=== PATIENT | male | born 1955 | race Caucasian/White ===

== ENCOUNTER 2019-06-30 08:50 | Outpatient (REF) | payer OTHER, SELFPAY ==
[2019-06-30 21:14] LABS: Anion Gap 6.1 mmol/L (3-11); BUN 18 mg/dL (7-18); CO2 29.9 mmol/L (21.0-32.0); CREATININE 0.95 mg/dL (0.70-1.30); Calcium 9.3 mg/dL (8.5-10.1); Chloride 103 mmol/L (98-107); Glucose 128 mg/dL (74-106); Potassium 4.7 mmol/L (3.5-5.1); Sodium 139 mmol/L (136-145)
[2019-06-30 21:24] LABS: Hemoglobin A1C 8.6 % (3.8-5.6)
== END 2019-06-30 09:10 ==
LOC: NCHCN 08:50
PROVIDERS: Visit Provider Internal Medicine
DX: E11.649 Type 2 diabetes mellitus with hypoglycemia without coma (principal)
CPT/HCPCS: 80048; 82043; 82570; 83036

== ENCOUNTER 2021-10-21 14:49 | Outpatient (REF) | payer MEDICARE, SELFPAY ==
[2021-10-21 21:05] LABS: ALT 38 U/L (16-63); AST 29 U/L (15-37); Albumin 3.9 g/dL (3.4-5.0); Alkaline Phosphatase 74 U/L (46-116); Bilirubin, Direct 0.3 mg/dL (0.0-0.2); Bilirubin, Total 0.9 mg/dL (0.2-1.0); Total Protein 7.7 g/dL (6.4-8.2)
== END 2021-10-21 14:50 | disposition home or self-care (01) ==
LOC: NCHCN 14:49
PROVIDERS: Visit Provider Nurse Practitioner Family
DX: R74.8 Abnormal levels of other serum enzymes (principal)
CPT/HCPCS: 80076

== ENCOUNTER 2021-11-07 18:22 | Outpatient (REF) | payer MEDICARE, SELFPAY ==
[2021-11-07 21:39] LABS: Anion Gap 8.6 mmol/L (3-11); BUN 33 mg/dL (7-18); CO2 26.4 mmol/L (21.0-32.0); CREATININE 1.3 mg/dL (0.70-1.30); Calcium 8.7 mg/dL (8.5-10.1); Chloride 96 mmol/L (98-107); Estimated GFR 55.06 (mL/min/1.73m2); Glucose 213 mg/dL (74-106); Potassium 4.3 mmol/L (3.5-5.1); Sodium 131 mmol/L (136-145)
[2021-11-09 13:00] LABS: Hepatitis Be Antigen Negative (Negative)
== END 2021-11-07 18:23 | disposition home or self-care (01) ==
LOC: NCHCN 18:22
PROVIDERS: Visit Provider Family Medicine
DX: I10 Essential (primary) hypertension (principal); B16.9 Acute hepatitis B without delta-agent and without hepatic coma
CPT/HCPCS: 80048; 87350

== ENCOUNTER 2021-11-22 18:40 | Outpatient (REF) | payer MEDICARE, SELFPAY ==
[2021-11-22 20:39] LABS: Abs Immature Grans 0.03 10^3/uL (0.0-0.06); HCT 44.8 % (40.0-50.0); HGB 15.7 g/dL (13.5-17.5); MCH 30.7 pg (27.0-33.0); MCV 88 fL (80-95); MPV 12.7 fL (8.0-11.0); RBC 5.12 10^6/uL (4.36-5.78); RDW 13.8 % (11.8-14.1); RDW-SD 44.6 fL; WBC 11.92 10^3/uL (4.4-10.8)
[2021-11-22 20:44] LABS: ALT 29 U/L (16-63); AST 32 U/L (15-37); Albumin 2.7 g/dL (3.4-5.0); Alkaline Phosphatase 97 U/L (46-116); Anion Gap 8.8 mmol/L (3-11); BUN 25 mg/dL (7-18); Bilirubin, Total 1.1 mg/dL (0.2-1.0); CO2 24.2 mmol/L (21.0-32.0); CREATININE 1.2 mg/dL (0.70-1.30); Calcium 8.5 mg/dL (8.5-10.1); Chloride 98 mmol/L (98-107); Glucose 210 mg/dL (74-106); Potassium 4.5 mmol/L (3.5-5.1); Sodium 131 mmol/L (136-145); Total Protein 7.5 g/dL (6.4-8.2)
[2021-11-22 21:58] LABS: Absolute Lymphocyte Count 7.03 10^3/uL (1.2-3.4); Absolute Neutrophil Count 4.29 10^3/uL (1.2-6.7); Atypical Lymphocytes % 16; Bands % 1; Diff Comment Manual Differential; Platelet Count 94 10^3/uL (130-400)
[2021-11-22 21:59] LABS: RBC Morphology Normal
== END 2021-11-22 18:41 | disposition home or self-care (01) ==
LOC: NCHCN 18:40
PROVIDERS: Visit Provider Nurse Practitioner Family
DX: R74.8 Abnormal levels of other serum enzymes (principal); E87.1 Hypo-osmolality and hyponatremia; R09.89 Other specified symptoms and signs involving the circulatory and respiratory systems; R97.1 Elevated cancer antigen 125 [CA 125]
CPT/HCPCS: 80053; 85025

== ENCOUNTER 2022-04-21 18:12 | Outpatient (REF) | payer MEDICARE, SELFPAY ==
--- OUTSIDE RECORDS SUMMARY | 2022-04-21 18:14 | XMS_ITS ---
:1955 Author Organization [facility] Address [address], [place] [id number] Care Team Providers Name Role Phone GokulMaricruz domingueznathan Unavailable Unavailable PROBLEMS Type Condition ICD9-CM [id number] Onset Condition SNOMED Cod e Code Code Dates Status Problem Diverticulosis K57.90 Active 86188 0005 Problem History of Z86.010 Active 037729708 adenomatous polyp of colon Problem Elevated CA 19-9 R97.8 Active 162 [id number] level Problem Acute hepatitis B B16.9 Active 76 809459 ALLERGIES No Known Allergies ENCOUNTERS Encounter Location Date Diagnosis [facility] [address] [place] [address] 28 Dec, [address] [place] [address] [id number] [facility] [address] [place] [address] 15 Dec, [address] [place] [address] [id number] [facility] [address] [place] [address] 08 Dec, [address] [place] [address] [id number] [facility] [address] [place] [address] Dec, Road [address] [place] [address] [id number] [facility] [address] [place] [address] Nov, Elevated CA 1 9-[address] [place], [place] [id number] [facility] [address] [place] [address] Nov, Acute hepatit is B B16.9 ; Road [address] Elevated CA 19-9 level [place] R97.8 and Histor y of [id number] adenomatous poly p of colon Z86.[address] [facility] [address] [place] [address] Jul, Elevated CA 1 9-[address] [place], [place] [id number] [facility] [address] [place] [address] Jul, Acute hepatit is B B16.9 ; Road [address] Elevated CA 19-9 level [place], [place] R97.8 ; Family h istory of [id number] malignant neopla sm of colon in first d egree relative diagnos ed when younger than 60 years of age Z80.0 ; Hist ory of adenomatous poly p of colon Z86.010 an d Diverticulosis K 57.[address] [facility] [address] [place] [address] 07 Jul, [address] [place] [id number] Jun, Diverticulo sis K57.90 ; [address] [place], [place] Family histor y of colon [id number] cancer Z80.0 and Polyp of ascending colon, unspecified type K63.[address] [address] [place] [address] May, Road [address] [id number] [facility] [address] [place] [address] May, Acute hepatit is B B16.9 ; Road [place] [address] Family history o f colon [place], [place] cancer Z80.0 ; A cute [id number] diarrhea R19.7 a nd Elevated CA 19-9 level R97.[address] [address] [place] [address] May, Road [address] [place] [address] [id number] IMMUNIZATIONS No Known Immunizations SOCIAL HISTORY Never Assessed REASON FOR REFERRAL FUNCTIONAL STATUS PLAN OF CARE Activity Details Follow Up I will contact for follow-up , register for labs today, prn Reason: Future Test MR ABDOMEN WO/W CONTRAST Future Test BASIC METABOLIC PROFILE [address] ABDOMEN W/WO CONTRAST Future Test LIVER PROFILE 20211206 Future Test HEPATITIS B SURFACE ANTIGEN 20211206 Future Test HEPATITIS B SURFACE ANTIBODY 20211206 Future Test CA 19-9 ([id number]) 20211206 Future Test LIVER PROFILE 20210802 Future Test HEPATITIS B SURFACE ANTIGEN 20210802 Future Test CA 19-9 ([id number]) 20210802 Future Test LIVER PROFILE 20210531 Future/Pending Procedure COLONOSCOPY AND BIOPSY VITAL SIGNS Height 6ft in 2021-12-06 Height 6ft in 2021-08-02 Height 6ft in 2021-05-31 Weight 267 lbs 2021-12-06 Weight 285.6 lbs 2021-08-02 Weight 283 lbs 2021-05-31 Temperature 97.4 degrees Fahrenheit 2021-12-06 Temperature 97.7 degrees Fahrenheit 2021-08-02 Temperature 97 degrees Fahrenheit 2021-05-31 Heart Rate 75 /min 2021-12-06 Heart Rate 83 /min 2021-08-02 Heart Rate 90 /min 2021-05-31 Oximetry 96 2021-12-06 Oximetry 95 2021-08-02 Oximetry 95 2021-05-31 BMI 36.21 kg/m2 2021-12-06 BMI 38.73 kg/m2 2021-08-02 BMI 38.38 kg/m2 2021-05-31 Blood pressure systolic 138 mm Hg 2021-12-06 Blood pressure diastolic 78 mm Hg 2021-12-06 MEDICATIONS Medication Instructions Dosage Frequency Start End Duration Statu s Date Date Pravastatin Orally Once a 1 tablet 24h 30 day(s) Act joey Sodium 10 MG day Lisinopril 20 Orally Once a 1 tablet 24h 30 day(s) A ctive MG day metFORMIN HCl Orally Twice a 1 tablet 12h Ac tive 1000 MG day with a meal Jardiance 25 MG Orally Once a 1 tablet 24h 30 day(s) Active day Viagra 100 MG Orally Once a 1 tablet as 24h 30 day(s ) Active day needed Verapamil HCl Orally 50 mg 1 tablet Acti ve ER 120 MG Once a day Levemir 100 Subcutaneous 2 as directed A ctive UNIT/ML times per day PROCEDURES Procedure Date Ordered Result Body Site COLONOSCOPY & COLD BIOPSY POLYPECTOMY June 29, 2021 RESULTS Name Result Date Reference Range CT ABDOMEN W/WO CONTRAST 2021-12-09 BASIC METABOLIC PROFILE 2021-12-06 SODIUM 133 134-143 POTASSIUM 4.9 3.5-5.1 CHLORIDE 104 98-111 CO2 21 22-32 CALCIUM 9.1 8.9-10.3 GLUCOSE 197 74-106 BUN 19 8-26 CREATININE 0.85 0.61-1.24 EGFR >60 EGFR CMT Multiply calculated EGFR by 1.025 for Americans. A/GAP 8.0 3.0-12.0 OSMOLARITY 274 275-295 B/CR 22.4 8.0-20.0 LIVER PROFILE 2021-12-06 TOTAL BILIRUBIN 1.0 0.3-1.2 DIRECT BILIRUBIN 0.2 0.0-0.5 TOTAL PROTEIN 7.7 6.5-8.1 ALBUMIN 3.5 3.5-5.0 GLOBULIN 4.2 2.3-3.5 A/G 0.8 1.0-2.5 ALKALINE PHOS 88 38-130 AST 19 15-41 ALT 19 17-63 HEPATITIS B SURFACE ANTIGEN 2021-12-06 HEP B SURFACE AG NON-REACTIVE NON-REACTIVE HEP B SURFACE AG NON-REACTIVE NON-REACTIVE HEPATITIS B SURFACE ANTIBODY 2021-12-06 CA 19-9 ([id number]) 2021-12-06 Carbohydrate Antigen 19-9 48 0-35 LIVER PROFILE 2021-08-02 TOTAL BILIRUBIN 1.4 0.3-1.2 DIRECT BILIRUBIN 0.5 0.0-0.5 TOTAL PROTEIN 7.3 6.5-8.1 ALBUMIN 3.9 3.5-5.0 GLOBULIN 3.4 2.3-3.5 A/G 1.1 1.0-2.5 ALKALINE PHOS 88 38-130 AST 23 15-41 ALT 25 17-63 HEPATITIS B SURFACE ANTIGEN 2021-08-02 HEP B SURFACE AG *REACTIVE* NON-REACTIVE HEP B SURFACE AG *REACTIVE* NON-REACTIVE CA 19-9 ([id number]) 2021-08-02 Carbohydrate Antigen 19-9 57 0-35 HEPATITIS B SURFACE ANTIGEN 2021-08-02 CONFIRMATION HEP B SURF AG CONF CONFIRMED POSITIVE NON-REACTI VE LIVER PROFILE 2021-06-29 TOTAL BILIRUBIN 4.3 0.3-1.2 DIRECT BILIRUBIN 2.0 0.0-0.5 TOTAL PROTEIN 6.3 6.5-8.1 ALBUMIN 3.1 3.5-5.0 GLOBULIN 3.2 2.3-3.5 A/G 1.0 1.0-2.5 ALKALINE PHOS 89 32-92 AST 27 15-41 ALT 28 17-63 CA 19-9 ([id number]) 2021-06-29 Carbohydrate Antigen 19-9 58 0-35 HEPATITIS A TOTAL ANTIBODY 2021-06-29 ([id number]) Hep A Ab, Total Positive Negative SURGICAL PATH 2021-06-29 LIVER PROFILE 2021-05-31 TOTAL BILIRUBIN 23.2 0.3-1.2 DIRECT BILIRUBIN 12.8 0.0-0.5 TOTAL PROTEIN 7.0 6.5-8.1 ALBUMIN 2.7 3.5-5.0 GLOBULIN 4.3 2.3-3.5 A/G 0.6 1.0-2.5 ALKALINE PHOS 172 32-92 AST 251 15-41 ALT 848 17-63 REASON FOR VISIT GI 10 wk fu, MRI location, RESULTS LVM 01/02///PT CALLED BACK 01/02 3x, LVM 12/15, LVM 12/07, GI-f/u, 1.Acute hepatitis B - B16.9 (Primary) , 2. Elevated CA 19-9 level - R97.8 , 3. Family history of malignant neoplasm of colon in first degree relative diagnosed when younger than 60 years of age - Z80.0 ,4. History of adenomatous polyp of colon - Z86.010 , 5. Diverticulosis - K57.90 , CRITICAL , GI- COLO 1 MONTH F/U, Bloodwork results, GI- COLO, Returning call , GI MED SURG -follow up, Follow up after hospital stay Insurance Providers [facility] Member Patient Patient Patient Patient Patient Subscriber Subscriber Subscriber Group Insurance Plan Plan Plan Plan ID Relationship Address Phone Name Date of ID Name Date of No Type Insurance Insurance Insurance Coverage to Subscriber Address Phone Name Dates NGS [phone] NGS self Earnest [id number] MEDICARE [id number] [place] [address] MEDICARE [phone] MEDICARE self Earnest [id number] PART A [id number] [place] [address] MED[address]ARE [phone] MEDICARE ana Tinoco [id number] [place] [address] [facility] CARE [address] [id number] [address] CARE self Earnest [id number] 02.25.2021- LEVEL 4 [facility] [address] [facility] [id number]
[2022-04-24 08:14] LABS: PSA, Screening 0.5 ng/mL (<=4.5)
== END 2022-04-21 18:13 | disposition home or self-care (01) ==
LOC: NCHCN 18:12
PROVIDERS: Visit Provider Internal Medicine
DX: Z12.5 Encounter for screening for malignant neoplasm of prostate (principal)
CPT/HCPCS: 84153

== ENCOUNTER 2022-08-04 10:47 | Outpatient (REF) | payer MEDICARE, SELFPAY ==
[2022-08-04 14:25] LABS: Microalb ug/mg Crea 489.6 ug/mg Cr
== END 2022-08-04 10:48 | disposition home or self-care (01) ==
LOC: NCHCN 10:47
PROVIDERS: Visit Provider Internal Medicine
DX: E11.65 Type 2 diabetes mellitus with hyperglycemia (principal)
CPT/HCPCS: 82043; 82570

== ENCOUNTER 2022-11-13 12:54 | Outpatient (REF) | payer MEDICARE, SELFPAY ==
[2022-11-13 14:49] LABS: HCT 50.8 % (40.0-50.0); HGB 16.9 g/dL (13.5-17.5); MCH 30.9 pg (27.0-33.0); MCHC 33.3 % (32.0-36.0); MCV 93 fL (80-95); MPV 11.4 fL (8.0-11.0); Platelet Count 205 10^3/uL (130-400); RBC 5.47 10^6/uL (4.36-5.78); RDW 13.8 % (11.8-14.1); RDW-SD 48.1 fL; WBC 7.41 10^3/uL (4.4-10.8)
[2022-11-13 15:33] LABS: ALT 25 U/L (16-63); AST 23 U/L (15-37); Albumin 3.7 g/dL (3.4-5.0); Alkaline Phosphatase 77 U/L (46-116); BUN 17 mg/dL (7-18); Bilirubin, Total 0.8 mg/dL (0.2-1.0); Calcium 9.7 mg/dL (8.5-10.1); Chloride 105 mmol/L (98-107); Estimated GFR 81.98 (mL/min/1.73m2); Glucose 91 mg/dL (74-106); Potassium 4.8 mmol/L (3.5-5.1); Sodium 140 mmol/L (136-145); Total Protein 7.6 g/dL (6.4-8.2)
== END 2022-11-13 12:55 | disposition home or self-care (01) ==
LOC: NCHCN 12:54
PROVIDERS: Visit Provider Internal Medicine
DX: E11.65 Type 2 diabetes mellitus with hyperglycemia (principal); I10 Essential (primary) hypertension
CPT/HCPCS: 80053; 85027

== ENCOUNTER 2023-08-20 15:04 | Outpatient (REF) | payer MEDICARE, SELFPAY ==
[2023-08-20 15:52] LABS: COMMENT (LAB VIEW ONLY) 68.01 mg/dL
[2023-08-20 15:54] LABS: HCT 51.4 % (40.0-50.0); HGB 17.4 g/dL (13.5-17.5); MCH 31.2 pg (27.0-33.0); MCHC 33.9 % (32.0-36.0); MCV 92 fL (80-95); MPV 11.6 fL (8.0-11.0); Platelet Count 208 10^3/uL (130-400); RBC 5.58 10^6/uL (4.36-5.78); RDW 13.4 % (11.8-14.1); RDW-SD 45.5 fL; WBC 6.07 10^3/uL (4.4-10.8)
[2023-08-20 16:37] LABS: ALT 26 U/L (16-63); AST 20 U/L (15-37); Albumin 3.9 g/dL (3.4-5.0); Alkaline Phosphatase 99 U/L (46-116); Anion Gap 5.7 mmol/L (3-11); BUN 18 mg/dL (7-18); Bilirubin, Total 0.7 mg/dL (0.2-1.0); CO2 28.3 mmol/L (21.0-32.0); CREATININE 1.1 mg/dL (0.70-1.30); Calcium 9.7 mg/dL (8.5-10.1); Calculated LDL 90 mg/dL (<100); Chloride 107 mmol/L (98-107); Cholesterol 160 mg/dL (<200); Estimated GFR 73.12 (mL/min/1.73m2); Glucose 132 mg/dL (74-106); HDL Cholesterol 59 mg/dL (40-60); Potassium 5.2 mmol/L (3.5-5.1); Sodium 141 mmol/L (136-145); Total Protein 7.5 g/dL (6.4-8.2); Triglyceride 59 mg/dL (<150)
[2023-08-20 16:47] LABS: Hemoglobin A1C 7.9 % (<5.7)
[2023-08-20 17:13] LABS: Microalb ug/mg Crea 460.2 ug/mg Cr
== END 2023-08-20 15:05 | disposition home or self-care (01) ==
LOC: NCHCN 15:04
PROVIDERS: Visit Provider Internal Medicine
DX: I10 Essential (primary) hypertension (principal); E11.9 Type 2 diabetes mellitus without complications
CPT/HCPCS: 80053; 80061; 85027; 82043; 82570; 83036

== ENCOUNTER 2024-08-15 21:12 | Outpatient (REF) | payer MEDICARE, SELFPAY ==
[2024-08-15 20:00] LABS: COMMENT (LAB VIEW ONLY) 58.79 mg/dL
[2024-08-15 20:01] LABS: Microalb ug/mg Crea 1201.7 ug/mg Cr
== END 2024-08-15 21:13 | disposition home or self-care (01) ==
LOC: NCHCN 21:12
PROVIDERS: Visit Provider Internal Medicine
DX: E11.21 Type 2 diabetes mellitus with diabetic nephropathy (principal)
CPT/HCPCS: 82043; 82570

== ENCOUNTER 2024-10-06 08:09 | Outpatient (REF) | payer MEDICARE, SELFPAY ==
[2024-10-06 14:43] LABS: Abs Immature Grans 0.01 10^3/uL (0.0-0.06); Absolute Basophil Count 0.08 10^3/uL (0.0-0.2); Absolute Eosinophil Count 0.39 10^3/uL (0.0-0.7); Absolute Lymphocyte Count 1.37 10^3/uL (1.2-3.4); Absolute Monocyte Count 0.54 10^3/uL (0.1-0.8); Absolute Neutrophil Count 4.72 10^3/uL (1.2-6.7); Basophils % 1.1 %; Eosinophils % 5.5 %; HCT 46.8 % (40.0-50.0); HGB 15.6 g/dL (13.5-17.5); Immature Grans % 0.1 %; Lymphocytes % 19.3 %; MCH 30.9 pg (27.0-33.0); MCHC 33.3 % (32.0-36.0); MCV 93 fL (80-95); MPV 11.6 fL (8.0-11.0); Monocytes % 7.6 %; Neutrophils % 66.4 %; Platelet Count 210 10^3/uL (130-400); RBC 5.05 10^6/uL (4.36-5.78); RDW 13.5 % (11.8-14.1); WBC 7.11 10^3/uL (4.4-10.8)
[2024-10-06 15:06] LABS: Hemoglobin A1C 7.9 % (<5.7)
[2024-10-06 15:27] LABS: ALT 36 U/L (16-63); AST 24 U/L (15-37); Albumin 3.6 g/dL (3.4-5.0); Alkaline Phosphatase 71 U/L (46-116); Anion Gap 5.5 mmol/L (3-11); BUN 19 mg/dL (7-18); Bilirubin, Total 0.7 mg/dL (0.2-1.0); CO2 28.5 mmol/L (21.0-32.0); CREATININE 0.9 mg/dL (0.70-1.30); Calcium 9.2 mg/dL (8.5-10.1); Calculated LDL 105 mg/dL (<100); Chloride 104 mmol/L (98-107); Cholesterol 180 mg/dL (<200); Estimated GFR 92.45 (mL/min/1.73m2); Glucose 163 mg/dL (74-106); HDL Cholesterol 57 mg/dL (>or=40); Potassium 4.6 mmol/L (3.5-5.1); Sodium 138 mmol/L (136-145); Total Protein 7.2 g/dL (6.4-8.2); Triglyceride 91 mg/dL (<150)
== END 2024-10-06 08:10 | disposition home or self-care (01) ==
LOC: NCHCN 08:09
PROVIDERS: Visit Provider Internal Medicine
DX: E11.21 Type 2 diabetes mellitus with diabetic nephropathy (principal)
CPT/HCPCS: 80053; 80061; 83036; 85025

== ENCOUNTER 2024-12-09 23:09 | Emergency (ER) | payer MEDICARE, SELFPAY ==
[2024-12-09 23:21] VITALS: BP 150/85; PULSE 94; RESP 20; TEMP 36.6; O2SAT 94
--- NOTE | 2024-12-09 23:44 | W.ED.GENAD ---
Discharge Plan Disposition Patient Disposition: Home Condition: Good Discharge Details Clinical Impression: Muscle spasms of neck Primary Care Provider: Patti Lambert ED Provider: Michael Gonsalves Home Meds and New Rx's Prescriptions: New cyclobenzaprine 10 mg tablet 10 mg PO TID Qty: 14 0RF lidocaine [Lidoderm] 5 % adhesive patch,medicated 1 patch Topical Q24H Qty: 15 0RF Discharge Instructions Instructions: Muscle Spasm ED Additional Instructions: At this time your symptoms appear consistent with a muscle strain of the muscles of your back and neck. Thankfully there is no other current clinical evidence to suggest vascular or neurologic compromise. Please apply the Lidoderm patches to your spasmed areas every 24 hours as prescribed. If your insurance does not cover these prescriptions, you can get [id number] versions that are still quite effective. Please take 1000 mg of Tylenol every 6-8 hours to help with the pain for the next 2 to 3 days. Please take the cyclobenzaprine 10 mg tablet every 8 hours as prescribed. Please be cautious while on the medication as it can make you quite sleepy. Avoid driving vehicle, climbing ladders, swimming, operating firearms or heavy machinery. Please perform the stretch exercises that we reviewed together frequently throughout the day. Please use a heating pad on your neck and massage that area regularly. If you notice any worsening of your symptoms, or any new symptoms such as vomiting, diarrhea, fever, chills, shortness of breath, chest pain, numbness, weakness, or fainting , please return immediately to the emergency department for reevaluation. Please follow up with your primary care provider as soon as possible for reassessment and reevaluation. As always, it was a pleasure participating in your medical care today. Referrals: Patti Lambert [Primary Care Provider, Medicine] HPI General Date/Time Provider Initiated Documentation: 12/09/24 23:10. HPI Narrative: This is a 69-year-old male with a past medical history of type 2 diabetes mellitus, hypertension, who presents today for evaluation of neck/back previous. Patient states that in the past he has had some spasms of his neck before, but these have resolved on their own with time. However over the last couple of days the patient has been doing somewhat more extensive work by putting in a porch. He has been significantly utilizing the muscles of his neck back and upper arms and positions that he has not otherwise used for some time. He states that on 12/06 he was lifting some packets with his shoulders and arms when he noticed a spasm in his neck bilaterally extending down towards his shoulders. Since then he has felt notably tight in that area, and has not felt much relief. He did take Tylenol this morning and had moderate improvement of his symptoms but once the Tylenol wore off the symptoms returned. He denies any chest pain or shortness of breath. He denies any numbness or tingling in his arms or extremities. He denies any fever chills or headache. He denies vision changes. No chest pain or pleuritic chest pain. No history of cardiac disease. He denies any trauma. He is not on any blood thinners. He denies any previous neck surgery. No other complaints at this time. Symptoms are made worse with turning his neck to the left or right or forward or backwards. They are improved with Tylenol and a circumferential neck pillow support. Related Data Home Medications ?Medication ?Instructions ?Recorded ?Confirmed cyclobenzaprine 10 mg tablet 10 mg PO TID #14 tabs 12/09/24 lidocaine 5 % topical patch 1 patch topical Q24H #15 ea 12/09/24 (Lidoderm) Previous Rx's ?Medication ?Instructions ?Recorded cyclobenzaprine 10 mg tablet 10 mg PO TID #14 tabs 12/09/24 lidocaine 5 % topical patch 1 patch topical Q24H #15 ea 12/09/24 (Lidoderm) Allergies Allergy/AdvReac Type Severity Reaction Status Date / Time No Known Allergies Allergy Unverified 12/09/24 23:26 General Stated Complaint: Nk/Back Pain CAITIE: 4 Exam Narrative Exam Narrative: 1.Const: Well-nourished, Well-developed, appearing stated age 2.Eyes: PERRL, no conjunctival injection, and symmetrical lids. 3.ENT: Atraumatic external nose and ears. Moist MM. Neck: Symmetric, trachea midline, No thyromegaly. 4.CVS: +S1/S2, Peripheral pulses 2+ and equal in all extremities. Brisk capillary refill in all extremities. Radial pulses +2 bilaterally 5.RESP: Unlabored respiratory effort. Clear to auscultation bilaterally. No wheezes rales or rhonchi 6.GI: Soft, Nontender/Nondistended, No hepatosplenomegaly. No guarding or rebound. 7.MSK: Normocephalic/Atraumatic, Extremities w/o deformity or ttp No cyanosis or clubbing, Normal movement of all extremities. Patient has notable demonstratable spasm of the upper third of the trapezius muscle bilaterally, with mild spasm of the erector spinae in that area. No midline cervical thoracic or lumbar spine tenderness. No spasm of the sternocleidomastoid. Reduced range of motion for lateral rotation for left and right, as well as lateral sidebending for both left and right. No managements. 8.Skin: Warm, Dry. No rashes or lesions. 9.Neuro: manager hi II-XII grossly intact. Sensation grossly intact, no focal neurologic deficits. 10.Psych: (AAO) x3. Appropriate mood and affect Course Vital Signs Vital signs: Vital Signs Temperature 36.6 C 12/09/24 23:21 Pulse 94 H 12/09/24 23:21 Respiratory Rate 20 12/09/24 23:21 Blood Pressure 150/85 H 12/09/24 23:21 Pulse Oximetry 94 12/09/24 23:21 Temperature 36.6 C 12/09/24 23:21 Pulse 94 H 12/09/24 23:21 Respiratory Rate 20 12/09/24 23:21 Blood Pressure 150/85 H 12/09/24 23:21 Blood Pressure Position Sitting 12/09/24 23:21 Pulse Oximetry 94 12/09/24 23:21 Oxygen Delivery Method Room Air 12/09/24 23:21 Oxygen Flow Rate 0 12/09/24 23:21 Medical Decision Making This is a 69-year-old male with a past medical history of type 2 diabetes mellitus, hypertension, who presents today for evaluation of neck/back previous. Patient states that in the past he has had some spasms of his neck before, but these have resolved on their own with time. However over the last couple of days the patient has been doing somewhat more extensive work by putting in a porch. He has been significantly utilizing the muscles of his neck back and upper arms and positions that he has not otherwise used for some time. He states that on 12/06 he was lifting some packets with his shoulders and arms when he noticed a spasm in his neck bilaterally extending down towards his shoulders. Since then he has felt notably tight in that area, and has not felt much relief. He did take Tylenol this morning and had moderate improvement of his symptoms but once the Tylenol wore off the symptoms returned. He denies any chest pain or shortness of breath. He denies any numbness or tingling in his arms or extremities. He denies any fever chills or headache. He denies vision changes. No chest pain or pleuritic chest pain. No history of cardiac disease. He denies any trauma. He is not on any blood thinners. He denies any previous neck surgery. No other complaints at this time. Symptoms are made worse with turning his neck to the left or right or forward or backwards. They are improved with Tylenol and a circumferential neck pillow support. Patient has notable demonstratable spasm of the upper third of the trapezius muscle bilaterally, with mild spasm of the erector spinae in that area. No midline cervical thoracic or lumbar spine tenderness. No spasm of the sternocleidomastoid. Reduced range of motion for lateral rotation for left and right, as well as lateral sidebending for both left and right. No managements. Patient has good pulses bilaterally normal sensation and strength and movement of the upper extremities. No midline cervical thoracic or lumbar spine tenderness. No fever chills or headache to suggest meningitis. No neurologic deficits or vascular deficits to suggest thoracic outlet syndrome or neurovascular compromise. Symptoms were acute, no evidence to suggest tumor or mass. Differential is highest for spasm of the muscles secondary to additional labor. No evidence clinically at this time to suggest other life-threatening etiology. Will apply Lidoderm patches will recommend cyclobenzaprine and Tylenol. I did perform muscle stretching exercises with the patient and his at bedside. They will continue these on an outpatient basis. Recommend heating pad. Discussed red flags for which to return. No indication at this time for emergent imaging. I have extensively reviewed the treatment plan and discharge instructions with the patient. I have addressed all patient concerns at this time. The patient was made aware of what symptoms to monitor for that would warrant a return to the emergency department. Discussed the plan with the patient, they demonstrate verbal understanding and agreement with our assessment and plan at this time. The documentation in this chart was dictated using [employer] dictation software. Please excuse any dictation errors. PFSH Social History Smoking risk assessment performed?: No
[2024-12-09] MEDS: Acetaminophen 500 MG TAB 1000 MG PO (23:50)
[2024-12-09] MEDS: Lidocaine 5% Patch 2 PATCH TP (23:50)
[2024-12-09] MEDS: Cyclobenzaprine 10 MG TAB, 3 TABS/BTL PO (23:50)
== END 2024-12-10 00:04 | disposition home or self-care (01) ==
LOC: ER 12-10 00:07
PROVIDERS: Emergency Provider Student in an Organized Health Care Education/Training Program; PCP Internal Medicine
DX: M62.838 Other muscle spasm (principal)
CPT/HCPCS: 99283 ×2

== ENCOUNTER 2025-03-31 08:04 | Outpatient (REF) | payer MEDICARE, SELFPAY ==
[2025-03-31 14:34] LABS: Cholesterol 118 mg/dL (<200); HDL Cholesterol 44 mg/dL (>or=40)
[2025-03-31 14:37] LABS: Hemoglobin A1C 7.2 % (<5.7)
== END 2025-03-31 08:05 | disposition home or self-care (01) ==
LOC: NCHCN 08:04
PROVIDERS: PCP Internal Medicine; Visit Provider Internal Medicine
DX: E78.5 Hyperlipidemia, unspecified (principal); E11.8 Type 2 diabetes mellitus with unspecified complications; E11.21 Type 2 diabetes mellitus with diabetic nephropathy
CPT/HCPCS: 80061; 83036